=== PATIENT | female | born 1955 | race Caucasian/White ===

== ENCOUNTER 2020-11-07 07:51 | Outpatient (CLI) | payer MEDICARE | END 2020-11-07 07:52 | disposition home or self-care (01) | LOC: CSHCT 07:51 | PROVIDERS: ATTEND Internal Medicine Gastroenterology | DX: R10.33 Periumbilical pain (principal); K59.00 Constipation, unspecified; M47.816 Spondylosis without myelopathy or radiculopathy, lumbar region | CPT/HCPCS: 74177; 82565 ==